=== PATIENT | female | born 1980 | race Caucasian/White ===

== ENCOUNTER → 2021-02-11 | Outpatient (CLI) | payer BC | LOC: MC.RAD 14:50 | DX: N64.9 Disorder of breast, unspecified (principal); R92.8 Other abnormal and inconclusive findings on diagnostic imaging of breast ==

== ENCOUNTER → 2021-08-08 | Outpatient (CLI) | payer BC | LOC: MC.RAD 11:00 | DX: N60.11 Diffuse cystic mastopathy of right breast (principal) ==